=== PATIENT | female | born 1995 | race Caucasian/White ===

== ENCOUNTER 2017-06-01 17:42 | Emergency (ER) | payer MEDICAID ==
[~2017-06-01] VITALS: Ht 170.2 cm; Wt 76.8 kg
[~2017-06-01 17:42] MED LIST: ALBUTEROL0.09 MG/A1 IH; LEXAPRO20 MG PO; NO HOME MEDICATIONS; POLYMYXIN B/TRIMETH OS; PREDNISONE20 MG PO; SINGULAIR 110 MG/TAB PO; VENTOLIN0.09 MG IH
[2017-06-01 17:47] VITALS: BP 130/81; TEMP 98.3
[2017-06-01 19:09] LABS: BASO # 0.1 (0.0-0.2); BASO % 0.5 % (0.0-2.0); EOS # 0.1 (0.0-0.7); EOS % 0.7 % (0-4.0); GRAN # 7.2 (1.4-6.5); GRAN % 68.9 % (42.2-75.2); HEMATOCRIT 40.2 % (35.0-45.0); HEMOGLOBIN 14.2 g/dl (12.0-15.0); LYMPH # 2.6 (1.2-3.4); LYMPH % 24.4 % (20.0-51.0); MEAN CELL VOLUME 89 fl (80.0-95.0); MEAN CORPUSCULAR HEMOGLOBIN 31 pg (26.0-32.0); MEAN CORPUSCULAR HGB CONC 35 g/dl (33.0-37.0); MEAN PLATELET VOLUME 9.3 fl (7.4-10.4); MONO # 0.6 (0.1-0.6); MONO % 5.3 % (1.7-9.3); PLATELET COUNT 356 K/mm3 (130-400); RED BLOOD COUNT 4.53 M/mm3 (4.10-5.30); WHITE BLOOD COUNT 10.5 K/mm3 (4.8-10.8)
[2017-06-01 19:13] LABS: COLLECTION METHOD CLEAN CATCH
[2017-06-01 19:28] LABS: ADJUSTED CALCIUM 9.3 mg/dL (8.4-10.2); ALBUMIN 4.6 gm/dL (3.5-5.0); BILIRUBIN,TOTAL 0.6 mg/dL (0.0-1.0); CALCIUM 9.8 mg/dL (8.4-10.2); CREATININE, serum 0.64 mg/dL (0.52-1.25); POTASSIUM 3.7 mmol/L (3.4-5.0); TOTAL PROTEIN 7.5 gm/dL (6.4-8.2)
[2017-06-01 19:34] LABS: MUCOUS Present /lpf; PH 5 (5-8); SQUAMOUS EPITHELIAL 20-50 /hpf; URINE APPEARANCE Turbid; URINE BACTERIA Rare /hpf; URINE BILIRUBIN Negative (NEGATIVE); URINE BLOOD 1+ (NEGATIVE); URINE COLOR Amber; URINE GLUCOSE Negative (NEGATIVE); URINE KETONE 1+ (NEGATIVE); URINE LEUKOCYTE ESTERASE 2+ (NEGATIVE); URINE PROTEIN(semi-quant) 1+ (NEGATIVE); URINE UROBILINOGEN Negative (NEGATIVE)
[2017-06-01 19:36] LABS: URINE WBC >50 /hpf
[2017-06-01] MEDS ORDERED: PHENERGAN 25 TA25 MG PO (20:39)
[2017-06-01 21:01] VITALS: PULSE 89
[2017-06-01] MEDS ORDERED: CEFTIN500 MG PO (21:04)
== END 2017-06-01 21:03 | disposition home or self-care (01) ==
LOC: COL.ER 17:42
PROVIDERS: Nurse Practitioner
DX: O21.9 Vomiting of pregnancy, unspecified (principal); Z3A.10 10 weeks gestation of pregnancy; Z90.49 Acquired absence of other specified parts of digestive tract
CPT/HCPCS: J2550; J2765; J7030

== ENCOUNTER 2017-07-14 19:36 | Emergency (ER) | payer OTHER, MEDICAID ==
[~2017-07-14] VITALS: Ht 170.2 cm; Wt 76.4 kg
[~2017-07-14 19:36] MED LIST changes: +CEFTIN500 MG PO; +PHENERGAN 25 TA25 MG PO
[2017-07-14 19:39] VITALS: TEMP 98.6
[2017-07-14 20:57] VITALS: BP 122/83; PULSE 94
== END 2017-07-14 21:02 | disposition home or self-care (01) ==
LOC: COL.ER 19:36
DX: J06.9 Acute upper respiratory infection, unspecified (principal); J45.909 Unspecified asthma, uncomplicated; Z98.890 Other specified postprocedural states

== ENCOUNTER 2017-12-03 15:23 | Outpatient (CLI) | payer OTHER, MEDICAID ==
[~2017-12-03] VITALS: Ht 170.2 cm; Wt 90.9 kg
[2017-12-03 15:34] VITALS: BP 122/75; PULSE 99; TEMP 98.1
[2017-12-03 15:51] VITALS: BP 122/75; PULSE 99; TEMP 98.1
== END 2017-12-03 16:00 | disposition home or self-care (01) ==
LOC: LDRO 15:23
DX: O62.9 Abnormality of forces of labor, unspecified (principal); Z3A.34 34 weeks gestation of pregnancy

== ENCOUNTER 2017-12-19 17:42 | Outpatient (CLI) | payer OTHER, MEDICAID ==
[~2017-12-19] VITALS: Ht 170.2 cm; Wt 93.2 kg
[2017-12-19 17:48] VITALS: BP 118/77; PULSE 98; TEMP 97.9
[2017-12-19] MEDS ORDERED: PROTONIX20 MG PO (17:58)
[2017-12-19 19:06] VITALS: BP 119/78; PULSE 86
== END 2017-12-19 19:20 | disposition home or self-care (01) ==
LOC: LDRO 17:42 → LDR 18:22 → LDRO 19:20
DX: O62.9 Abnormality of forces of labor, unspecified (principal); Z3A.36 36 weeks gestation of pregnancy
CPT/HCPCS: OP

== ENCOUNTER 2018-01-01 18:18 | Outpatient (CLI) | payer OTHER, MEDICAID ==
[~2018-01-01] VITALS: Ht 170.2 cm; Wt 95.5 kg
[~2018-01-01 18:18] MED LIST changes: +PROTONIX20 MG PO
[2018-01-01 18:52] VITALS: BP 126/80; PULSE 89; TEMP 97.9
== END 2018-01-01 19:00 | disposition home or self-care (01) ==
LOC: LDRO 18:18 → LDR 18:30 → LDRO 19:00
DX: O36.8130 Decreased fetal movements, third trimester, not applicable or unspecified (principal); Z3A.38 38 weeks gestation of pregnancy
CPT/HCPCS: OP

== ENCOUNTER 2018-01-07 23:58 | Inpatient (IN) | payer OTHER, MEDICAID ==
[~2018-01-07] VITALS: Ht 170.2 cm; Wt 95.9 kg
[2018-01-08] VITALS (45 sets, daily range): BP systolic 93–139; BP diastolic 52–87; PULSE 83–125; TEMP 97.5–103
[2018-01-08 05:21] LABS: BASO % 0.2 % (0.0-2.0); EOS # 0.2 (0.0-0.7); EOS % 1.1 % (0-4.0); GRAN # 15.6 (1.4-6.5); GRAN % 79.6 % (42.2-75.2); HEMOGLOBIN 12.3 g/dl (12.0-15.0); LYMPH # 2.2 (1.2-3.4); MEAN CELL VOLUME 90 fl (80.0-95.0); MEAN CORPUSCULAR HEMOGLOBIN 31 pg (26.0-32.0); MEAN CORPUSCULAR HGB CONC 34 g/dl (33.0-37.0); MEAN PLATELET VOLUME 10.1 fl (7.4-10.4); MONO # 1.5 (0.1-0.6); MONO % 7.6 % (1.7-9.3); PLATELET COUNT 318 K/mm3 (130-400); RED BLOOD COUNT 4.01 M/mm3 (4.10-5.30); REDCELL DISTRIBUTION WIDTH-CV 13.1 % (11.5-14.5)
[2018-01-08 05:25] LABS: HEMATOCRIT 36.1 % (35.0-45.0)
[2018-01-09 01:10] VITALS: BP 110/67; PULSE 96; TEMP 97.7
[2018-01-09 07:58] LABS: BASO # 0.1 (0.0-0.2); BASO % 0.3 % (0.0-2.0); EOS # 0.2 (0.0-0.7); EOS % 1.1 % (0-4.0); GRAN # 16.3 (1.4-6.5); LYMPH # 2.9 (1.2-3.4); LYMPH % 13.7 % (20.0-51.0); MEAN CELL VOLUME 92 fl (80.0-95.0); MEAN CORPUSCULAR HGB CONC 33 g/dl (33.0-37.0); MEAN PLATELET VOLUME 9.6 fl (7.4-10.4); MONO # 1.3 (0.1-0.6); MONO % 6.3 % (1.7-9.3); PLATELET COUNT 241 K/mm3 (130-400); RED BLOOD COUNT 3.37 M/mm3 (4.10-5.30); REDCELL DISTRIBUTION WIDTH-CV 13.3 % (11.5-14.5)
[2018-01-09 08:00] LABS: HEMATOCRIT 30.9 % (35.0-45.0); HEMOGLOBIN 10.3 g/dl (12.0-15.0); MEAN CORPUSCULAR HEMOGLOBIN 31 pg (26.0-32.0)
[2018-01-09 08:28] VITALS: BP 90/71; PULSE 103; TEMP 97.5
[2018-01-09 16:05] VITALS: BP 116/78; PULSE 86; TEMP 98.1
[2018-01-09 19:00] VITALS: BP 111/68; PULSE 96; TEMP 97.7
[2018-01-10 04:16] VITALS: BP 113/56; PULSE 83; TEMP 98
[2018-01-10 07:45] VITALS: BP 131/79; PULSE 83; TEMP 97.3
[2018-01-10] MEDS ORDERED: IBU800 M1 PO (09:05)
== END 2018-01-10 17:30 | disposition home or self-care (01) | DRG 774 ==
LOC: LDRO 23:58 → LDR 01-08 04:17 → OB 01-08 04:17
PROVIDERS: Obstetrics & Gynecology; Student in an Organized Health Care Education/Training Program
PROC: 10E0XZZ Delivery of Products of Conception, External Approach (ICD-10-PCS; principal; 2018-01-08)
PROC: 0HQ9XZZ Repair Perineum Skin, External Approach (ICD-10-PCS; 2018-01-08)
DX: O41.1230 Chorioamnionitis, third trimester, not applicable or unspecified (principal); O75.2 Pyrexia during labor, not elsewhere classified; Z3A.39 39 weeks gestation of pregnancy; Z37.0 Single live birth; O70.0 First degree perineal laceration during delivery; O76 Abnormality in fetal heart rate and rhythm complicating labor and delivery; J45.909 Unspecified asthma, uncomplicated
CPT/HCPCS: J0290; J1580; J2270; J2590; J2795; J7120

== ENCOUNTER → 2018-01-07 | Outpatient (CLI) | payer OTHER, MEDICAID ==
[~2018-01-07] VITALS: Ht 170.2 cm; Wt 95.9 kg
[2018-01-07 16:50] VITALS: TEMP 98.7
[2018-01-07 17:00] VITALS: BP 122/78; PULSE 114; TEMP 98.7
[2018-01-07 18:00] VITALS: BP 112/72; PULSE 96
== END ==
LOC: LDRO 16:35
DX: O62.9 Abnormality of forces of labor, unspecified (principal); Z3A.39 39 weeks gestation of pregnancy

== ENCOUNTER 2019-01-12 13:01 | Emergency (ER) | payer OTHER, MEDICAID ==
[~2019-01-12] VITALS: Ht 170.2 cm; Wt 77.3 kg
[~2019-01-12 13:01] MED LIST changes: +IBU800 M1 PO
[2019-01-12 13:28] LABS: BASO # 0.1 (0.0-0.2); BASO % 0.5 % (0.0-2.0); EOS % 0.1 % (0-4.0); GRAN # 10.1 (1.4-6.5); GRAN % 74.9 % (42.2-75.2); HEMATOCRIT 40.2 % (37.0-47.0); HEMOGLOBIN 13.2 g/dl (12.5-16.0); LYMPH # 2.6 (1.2-3.4); LYMPH % 19.3 % (20.0-51.0); MEAN CELL VOLUME 87 fl (80.0-100.0); MEAN CORPUSCULAR HEMOGLOBIN 28 pg (27.0-31.0); MEAN CORPUSCULAR HGB CONC 33 g/dl (33.0-37.0); MEAN PLATELET VOLUME 9.1 fl (7.4-10.4); MONO # 0.7 (0.1-0.6); PLATELET COUNT 445 K/mm3 (130-400); RED BLOOD COUNT 4.65 M/mm3 (4.10-5.30); REDCELL DISTRIBUTION WIDTH-CV 14.6 % (11.5-14.5)
[2019-01-12 13:41] LABS: ALANINE AMINOTRANSFERASE 8 U/L (9-52); ALBUMIN 4.4 gm/dL (3.5-5.0); ALKALINE PHOSPHATASE 91 U/L (50-136); ANION GAP 13 mmol/L (7-16); AST,SGOT 30 U/L (15-37); BILIRUBIN,TOTAL 0.7 mg/dL (0.0-1.0); BLOOD UREA NITROGEN 11 mg/dL (7-17); CALCIUM 9.7 mg/dL (8.4-10.2); CARBON DIOXIDE 22 mmol/L (22-30); CHLORIDE 108 mmol/L (98-107); CREATININE, serum 1.14 (0.52-1.25); GLUCOSE 81 mg/dL (74-106); POTASSIUM 4.3 mmol/L (3.4-5.0); SODIUM 143 mmol/L (137-145); TOTAL PROTEIN 7.5 gm/dL (6.4-8.2)
[2019-01-12 13:42] VITALS: TEMP 98
[2019-01-12 13:43] LABS: ACETAMINOPHEN < 10 ug/mL (10-30); ALCOHOL(ethanol),MEDICAL < 10 mg/dL; SALICYLATE < 1.0 mg/dL
[2019-01-12 13:52] LABS: COLLECTION METHOD CLEAN CATCH
[2019-01-12 14:05] LABS: MUCOUS Present /lpf; PH 5 (5-8); SQUAMOUS EPITHELIAL 0-2 /hpf; URINE APPEARANCE Turbid; URINE BACTERIA Moderate /hpf; URINE BILIRUBIN Negative (NEGATIVE); URINE BLOOD 3+ (NEGATIVE); URINE COLOR Amber; URINE GLUCOSE Negative (NEGATIVE); URINE KETONE Negative (NEGATIVE); URINE LEUKOCYTE ESTERASE Negative (NEGATIVE); URINE NITRATE Negative (NEGATIVE); URINE PROTEIN(semi-quant) 2+ (NEGATIVE); URINE UROBILINOGEN Negative (NEGATIVE)
[2019-01-12] MEDS ORDERED: LAMICTAL 100MG100 MG PO (14:12)
[2019-01-12 14:17] LABS: TRICYCLIC ANTIDEPRESS URINE NEGATIVE
[2019-01-12 17:25] VITALS: BP 105/60; PULSE 98
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
== END 2019-01-12 17:30 | disposition home or self-care (01) ==
LOC: COL.ER 13:01
PROVIDERS: Family Medicine
DX: T42.6X2A Poisoning by other antiepileptic and sedative-hypnotic drugs, intentional self-harm, initial encounter (principal); F31.9 Bipolar disorder, unspecified; F17.210 Nicotine dependence, cigarettes, uncomplicated; F12.90 Cannabis use, unspecified, uncomplicated
CPT/HCPCS: J7030

== ENCOUNTER 2019-12-12 01:16 | Emergency (ER) | payer MEDICAID ==
[~2019-12-12] VITALS: Ht 170.2 cm; Wt 77.3 kg
[~2019-12-12 01:16] MED LIST changes: +LAMICTAL 100MG100 MG PO
[2019-12-12 02:33] VITALS: BP 108/64; PULSE 92; TEMP 98
[2019-12-12] MEDS ORDERED: PROAIR HFA0.09 MG/AC IH (02:36)
== END 2019-12-12 02:30 | disposition home or self-care (01) ==
LOC: COL.ER 01:16
DX: J45.901 Unspecified asthma with (acute) exacerbation (principal); F17.210 Nicotine dependence, cigarettes, uncomplicated

== ENCOUNTER 2020-06-11 01:20 | Emergency (ER) | payer SELFPAY ==
[~2020-06-11] VITALS: Ht 170.2 cm; Wt 81.8 kg
[~2020-06-11 01:20] MED LIST changes: +PROAIR HFA0.09 MG/AC IH
[2020-06-11 01:55] VITALS: BP 137/79; PULSE 86; TEMP 98.6
[2020-06-11 02:17] LABS: TRICYCLIC ANTIDEPRESS URINE NEGATIVE
== END 2020-06-11 02:17 | disposition left against medical advice (07) ==
LOC: COL.ER 01:20
PROVIDERS: Emergency Medicine
DX: R45.851 Suicidal ideations (principal)

== ENCOUNTER 2021-01-04 16:52 | Emergency (ER) | payer BC ==
[~2021-01-04] VITALS: Ht 170.2 cm; Wt 81.8 kg
[2021-01-04 18:45] VITALS: BP 120/52; PULSE 104; TEMP 99.2
[2021-01-05] MEDS ORDERED: OMNICEF 300MG300 MG PO (09:00)
== END 2021-01-04 18:52 | disposition left against medical advice (07) ==
LOC: COL.ER 16:52
DX: R05 Cough (principal); R52 Pain, unspecified; R53.83 Other fatigue; R06.02 Shortness of breath; Z20.822 Contact with and (suspected) exposure to COVID-19

== ENCOUNTER 2021-01-05 06:32 | Emergency (ER) | payer BC ==
[~2021-01-05] VITALS: Ht 170.2 cm; Wt 84.1 kg
[2021-01-05 06:40] VITALS: TEMP 100.5
[2021-01-05 07:38] LABS: COLLECTION METHOD CLEAN CATCH
[2021-01-05 07:45] LABS: HEMATOCRIT 42.5 % (37.0-47.0); MEAN CELL VOLUME 87 fl (80.0-100.0); MEAN CORPUSCULAR HEMOGLOBIN 29 pg (27.0-31.0); MEAN CORPUSCULAR HGB CONC 33 g/dl (33.0-37.0); MEAN PLATELET VOLUME 9.6 fl (7.4-10.4); PLATELET COUNT 269 K/mm3 (130-400); RED BLOOD COUNT 4.86 M/mm3 (4.10-5.30); REDCELL DISTRIBUTION WIDTH-CV 13.8 % (11.5-14.5)
[2021-01-05 07:49] LABS: MUCOUS Present /lpf; PH 5 (5-8); SQUAMOUS EPITHELIAL 0-2 /hpf; URINE APPEARANCE Cloudy; URINE BACTERIA Occasional /hpf; URINE BILIRUBIN Negative (NEGATIVE); URINE BLOOD 2+ (NEGATIVE); URINE COLOR Yellow; URINE GLUCOSE Negative (NEGATIVE); URINE KETONE 1+ (NEGATIVE); URINE LEUKOCYTE ESTERASE 2+ (NEGATIVE); URINE NITRATE Negative (NEGATIVE); URINE PROTEIN(semi-quant) 2+ (NEGATIVE); URINE UROBILINOGEN Negative (NEGATIVE)
[2021-01-05 07:52] LABS: ALBUMIN 4.1 gm/dL (3.5-5.0); BILIRUBIN,TOTAL 0.6 mg/dL (0.0-1.0); CALCIUM 9.3 mg/dL (8.4-10.2); POTASSIUM 3.5 mmol/L (3.4-5.0); TOTAL PROTEIN 7.3 gm/dL (6.4-8.2)
[2021-01-05 08:14] LABS: BAND 31 % (0-10); LYMPHOCYTE 9 % (20.0-51.0); METAMYELOCYTE 1 % (0-0); NEUTROPHILS 54 % (42.0-75.2); PLATELET ESTIMATE NORMAL (NORMAL)
[2021-01-05] MEDS ORDERED: OMNICEF 300MG300 MG PO (09:00)
[2021-01-05 09:36] VITALS: BP 121/79; PULSE 90
== END 2021-01-05 09:45 | disposition home or self-care (01) ==
LOC: COL.ER 06:32
PROVIDERS: Family Medicine
DX: N12 Tubulo-interstitial nephritis, not specified as acute or chronic (principal); J45.909 Unspecified asthma, uncomplicated; Z79.899 Other long term (current) drug therapy
CPT/HCPCS: J0696; J7120

== ENCOUNTER 2021-03-10 22:18 | Emergency (ER) | payer BC ==
[~2021-03-10] VITALS: Ht 170.2 cm; Wt 81.8 kg
[~2021-03-10 22:18] MED LIST changes: +OMNICEF 300MG300 MG PO
[2021-03-10 23:35] VITALS: BP 123/75; PULSE 104; TEMP 98.6
== END 2021-03-10 23:33 | disposition home or self-care (01) ==
LOC: COL.ER 22:18
DX: J45.909 Unspecified asthma, uncomplicated (principal); Z79.899 Other long term (current) drug therapy

== ENCOUNTER 2021-03-28 22:17 | Emergency (ER) | payer BC ==
[~2021-03-28] VITALS: Ht 170.2 cm; Wt 81.8 kg
[2021-03-28 22:25] VITALS: TEMP 98.5
[2021-03-29] MEDS ORDERED: PREDNISONE20 MG PO (00:09)
[2021-03-29] MEDS ORDERED: PROAIR HFA0.09 MG/AC IH (00:09)
[2021-03-29 00:30] VITALS: BP 123/74; PULSE 91
== END 2021-03-29 00:30 | disposition home or self-care (01) ==
LOC: COL.ER 22:17
DX: J45.909 Unspecified asthma, uncomplicated (principal); Z79.899 Other long term (current) drug therapy
CPT/HCPCS: J7512